=== PATIENT | male | born 1985 | race Caucasian/White ===

== ENCOUNTER 2020-06-22 21:58 | Emergency (ER) | payer MEDICAID ==
[~2020-06-22] VITALS: Ht 167.6 cm; Wt 83.0 kg
--- NOTE | 2020-06-22 21:58 | NUR ---
RADHA GROVER, PREBOOK. TAKEN TO CHAIR C
[2020-06-22 21:59] VITALS: BP 140/96
--- NOTE | 2020-06-22 22:20 | NUR ---
MAIDA CLIFFORD AT BEDSIDE ASSESSING AND EVALUATING PT. NO NURSING INTERVENTIONS NEEDED AT THIS TIME.
[2020-06-22 22:27] VITALS: BP 140/96
--- NOTE | 2020-06-22 22:27 | NUR ---
PATIENT BIB [place] [employer]. PATIENT EXAMINED BY DR. CLIFFORD. PATIENT MEDICALLY CLEARED AND RELEASED IN CUSTODY IN STABLE CONDITION. ORIGINAL PRE-BOOK FORM GIVEN TO OFFICER Domenico GRAY # [phone].
--- NOTE | 2020-06-22 22:27 | NUR ---
Patient discharged with v/s stable. Written and verbal after care instructions given and explained. Patient verbalized understanding. Ambulatory with in custody. All questions addressed prior to discharge. Advised to follow up with PMD.
== END 2020-06-22 22:27 ==
LOC: MED 21:58
DX: R07.89 Other chest pain (principal); Z02.89 Encounter for other administrative examinations
CPT/HCPCS: 99283